=== PATIENT | female | born 1950 ===

== ENCOUNTER 2018-06-18 09:30 | Outpatient (RCR) | payer OTHER, SELFPAY ==
--- NOTE | 2018-05-25 10:00 | PTTR_ITS ---
DATE: 05/25/18 SUBJECTIVE: Shikha was gone for a couple weeks in [place], was swimming, jumping off a dock, etc. . . For the most part her back is doing relatively well, she has a sensation into the lower lumbar area, but the more acute pain when she is driving for more than a 1/2 hour. Driving back from [place] yesterday which entailed 5 hours was pretty uncomfortable. She can [place] [facility] [place] without increasing her discomfort. OBJECTIVE: Has been on a home program for the past couple weeks due to her vacation. She states she has been compliant with her flexibility exercises, but non-compliant with her stabilization. We talked about swimming and she is going to do this on a regular basis down at [facility]. I encourage her to use flotation devices also in the deeper part to decompress her spine. I assess her movement patterns, she has relatively good mobility at the lumbar spine with some mild end range discomfort with extension and sidebending. She has a mild thoracic kyphosis. Reviewed her postural alignment in standing position against the wall as well as sitting. She has (-) SLR on the L, some mild lumbago with SLR on the R greater than 60 degrees. This diminishes after I stretch her hamstring, also do some neuroforaminal opening as well as gapping the facet joints and stretching the paraspinals with knee to chest and posterior pelvic tilting manually. In prone position, grade 3-4 PA glides to the entire thoracic and lumbar spine. She has some discomfort around L 4-5 region. Manual therapy: ([id number]). Direct treatment time: 30 Mins Total treatment time: 30 Mins, with continued care with Altagracia Clay PTA (see her note for specifics). Has a follow up appt in 7-10 days. I did upgrade her HEP to include some stretches to decrease the thoracic kyphosis. DLW/dl
--- NOTE | 2018-05-25 11:39 | PTTR_ITS ---
DATE: 05/25/18 Compliant with HEP: [] Yes X No OBJECTIVE: Co Treatment with PT Gael Heaton Manual therapy: ([id number]). Pt received DTM and trigger point release techniques throughout bilateral lower lumbar para spinals, QL, glute med, and piriformis region. Pt was more symptomatic throughout the glute med region. Direct treatment time: 30 Total treatment time: 30
--- NOTE | 2018-06-04 11:13 | PTTR_ITS ---
DATE: 06/04/18 SUBJECTIVE: Nunu states that she has been doing relatively well compared to a couple months ago and her back only bothers her now when she is driving long distances. She does use her lumbar support but it is still problematic. She has occasional discomfort throughout the anterior aspect of the (R) knee and thigh particularly with stairs. OBJECTIVE: Therapeutic procedures ([id number]). Reviewed her HEP and she has questions about the technique as well as the reps etc.. She was performing the ITB/ piriformis stretch incorrectly so I address this and have her perform it on her (L) side now because her (R) side is normal now and creates groin discomfort from jamming her hip. I upgrade her HEP to include some quad work on the (R) knee particularly in the form of a SLR and also some light low resistive strengthening exercises. Her knee motion is non irritable and she continues to have discomfort and crepitation with patellar femoral compression and crepitation on the (L). She is non tender throughout the joint line. Her lumbar movements are non irritable and she has a thoracic kyphosis. I perform some PA glides through the thoracic spine and she has some mild tenderness over the QL' s (B) as well as the (L) piriformis and I issue her a tennis ball to perform some trigger point release techniques. Direct treatment time: 30 minutes Total treatment time: 30 minutes ASSESSMENT: She is doing well walking up to 3 miles per session. She was performing this daily but is only performing this a few times per week not because it bothers her but because she just doesn't have the time. She has been busy with other activities. She swims on a daily basis. PLAN: Have Nunu continue with her HEP with todays upgrades so that she has a follow up appt in a couple weeks.
--- NOTE | 2018-06-18 16:24 | PTTR_ITS ---
DATE: 06/18/18 SUBJECTIVE: Shikha states she is moving in a positive direction. She is walking 3 1/2 miles 3x per week, now, and swimming on the off days. Her only complaint is of occasional discomfort throughout the anterior aspect of the right lower leg. This generally occurs after activity. She purchased a Neoprene type patella stabilizer, but it is not comfortable. OBJECTIVE: Therapeutic procedures ([id number]). Ambulating without antalgia. * x HEP review: modified the IT band stretch, etc. Also, upgraded her HEP to include wall squats, not to exceed 30 , as well as heel cord stretches Her lumbar movements are painfree today. Bilateral hip motion is full and painless with movement. She has a (-) Abdias's test, now, on the left, as she has been stretching this. Her knee motion is close to full. A little hypo mobility with flexion, but not painful. Her extension is full. (-) Esdras' s or drawer sign. (-) laxity with valgus/varus stress. (-) Harish's or Apley's grinding tests. She has discomfort and crepitation with patellofemoral compression on the right. Minimal medial joint line tenderness. (-) effusion, erythema or warmth. Non of this testing created referred pain into the right lower leg. Her talocrural, subtalar and mid tarsal movements are full and painless with movement. She is tight with her ankle dorsiflexion, though, with the knee extended, indicating gastroc nemius tightness at +15 . (-) pain with resistance to the ankle extrinsics, including the posterior and anterior tib and she is non tender throughout the anterior or posterior medial or lateral compartments. Direct treatment time: 30 minutes I also tried a patella stabilizer. Had her climb stairs with / without it. Tends to go into valgus when climbing, and I encouraged her to try to keep her LE neutral. Assessment: Doing well. She is minimally symptomatic, other than the occasional twinge in the back as well as anterior pre tibial type pain, but this does not last long. Her goal is to eventually 5 miles again. She tried a Neoprene sleeve, but it was too tight, and she returned it. She will try the patella stabilizer instead. She is still having some issues at the patellofemoral joint on the right. She also needs to build up her quads. I upgraded her program with some wall squats. She hasn't acquired a 5# weight, she will wait til she gets to [place]. Plan: Modified her program as noted above, with additions. She has a follow up appointment x2 weeks. Gael Heaton, PT. gc
== END 2018-06-19 23:59 | disposition home or self-care (01) ==
LOC: PT 09:30
PROVIDERS: Referring Provider Orthopaedic Surgery Sports Medicine; Visit Provider Orthopaedic Surgery Sports Medicine
DX: M54.41 Lumbago with sciatica, right side (principal)
CPT/HCPCS: 97110; 97140

== ENCOUNTER 2020-05-02 08:29 | Outpatient (CLI) | payer OTHER, SELFPAY ==
[2020-05-07 01:48] LABS: SARS-CoV-2 RNA Undetected (Undetected); SARS-CoV-2 Specimen Source Nasopharynx
== END 2020-05-02 08:49 ==
PROVIDERS: PCP Orthopaedic Surgery Sports Medicine; Visit Provider Internal Medicine
DX: Z11.59 Encounter for screening for other viral diseases (principal)
CPT/HCPCS: U0003